=== PATIENT | male | born 1965 | race Caucasian/White ===

== ENCOUNTER 2020-11-30 07:34 | Emergency (ER) | payer OTHER ==
[~2020-11-30] VITALS: Ht 172.7 cm; Wt 89.8 kg
[2020-11-30] MEDS ORDERED: HUMULIN 70100 UNIT/2 SUBCUTANEO (07:52)
[2020-11-30] MEDS ORDERED: METFORMIN HCL1000 M2 PO (07:53)
[2020-11-30] MEDS ORDERED: FENOFIBRATE50 MG PO (07:53)
[2020-11-30] MEDS ORDERED: SIMVASTATIN20 MG PO (07:54)
[2020-11-30] MEDS ORDERED: ADALAT CC30 MG (07:55)
[2020-11-30] MEDS ORDERED: TOPROL XL50 M1 PO (07:55)
[2020-11-30] MEDS ORDERED: HYDROCHLOROTHIA25 MG PO (07:56)
== END 2020-11-30 14:16 | disposition home or self-care (01) ==
LOC: ER 07:34
DX: R42 Dizziness and giddiness (principal)

== ENCOUNTER 2021-09-13 09:46 | Emergency (ER) | payer OTHER ==
[~2021-09-13] VITALS: Ht 162.6 cm; Wt 88.0 kg
[~2021-09-13 09:46] MED LIST: ADALAT CC30 MG; FENOFIBRATE50 MG PO; HUMULIN 70100 UNIT/2 SUBCUTANEO; HYDROCHLOROTHIA25 MG PO; METFORMIN HCL1000 M2 PO; SIMVASTATIN20 MG PO; TOPROL XL50 M1 PO
[2021-09-13] MEDS ORDERED: ZESTRIL20 MG (09:55)
== END 2021-09-13 14:11 | disposition home or self-care (01) ==
LOC: ER 09:46
DX: E11.65 Type 2 diabetes mellitus with hyperglycemia (principal)

== ENCOUNTER 2022-12-27 14:39 | Emergency (ER) | payer OTHER ==
[~2022-12-27] VITALS: Ht 152.4 cm; Wt 88.5 kg
[~2022-12-27 14:39] MED LIST changes: +ZESTRIL20 MG
== END 2022-12-27 17:30 | disposition home or self-care (01) ==
LOC: ER 14:39
DX: S81.821A Laceration with foreign body, right lower leg, initial encounter (principal); W45.8XXA Other foreign body or object entering through skin, initial encounter; Y93.89 Activity, other specified; Y92.89 Other specified places as the place of occurrence of the external cause; Y99.8 Other external cause status; E13.69 Other specified diabetes mellitus with other specified complication; I10 Essential (primary) hypertension

== ENCOUNTER 2023-01-04 07:50 | Emergency (ER) | payer OTHER ==
[~2023-01-04] VITALS: Ht 165.1 cm; Wt 63.5 kg
== END 2023-01-04 11:49 | disposition home or self-care (01) ==
LOC: ER 07:50
DX: T14.8XXA Other injury of unspecified body region, initial encounter (principal); L08.9 Local infection of the skin and subcutaneous tissue, unspecified; E11.9 Type 2 diabetes mellitus without complications

== ENCOUNTER 2023-01-09 09:23 | Emergency (ER) | payer OTHER ==
[~2023-01-09] VITALS: Ht 157.5 cm; Wt 88.5 kg
== END 2023-01-09 11:09 | disposition home or self-care (01) ==
LOC: ER 09:23
DX: Z48.02 Encounter for removal of sutures (principal)